=== PATIENT | female | born 1980 | race Two or more races ===

== ENCOUNTER 2018-07-07 12:44 | Emergency (ER) | payer OTHER ==
[~2018-07-07] VITALS: Ht 165.1 cm; Wt 47.6 kg
[2018-07-07 13:22] VITALS: BP 131/69
[2018-07-07] MEDS ORDERED: IBUPROFEN 600 MG TABLET PO ONE ×2 (14:00→14:42)
== END 2018-07-07 15:02 | disposition home or self-care (01) ==
LOC: ER 12:44
DX: S19.89XA Other specified injuries of other specified part of neck, initial encounter (principal); F12.90 Cannabis use, unspecified, uncomplicated; V49.49XA Driver injured in collision with other motor vehicles in traffic accident, initial encounter; Y93.89 Activity, other specified; Y92.413 State road as the place of occurrence of the external cause; Y99.8 Other external cause status
CPT/HCPCS: 84703; 99283; A4606